=== PATIENT | male | born 1955 | race Caucasian/White ===

== ENCOUNTER 2018-08-07 10:52 | Outpatient (CLI) | payer OTHER | END 2018-08-07 10:53 | disposition home or self-care (01) | LOC: LAB.F 10:52 | PROVIDERS: ATTEND Internal Medicine | DX: E78.5 Hyperlipidemia, unspecified (principal); Z12.5 Encounter for screening for malignant neoplasm of prostate ==

== ENCOUNTER 2018-08-08 07:15 | Outpatient (CLI) | payer OTHER ==
[2018-08-08 11:51] LABS: ALBUMIN 4.2 g/dL (3.2-5.5); ALBUMIN/GLOBULIN RATIO 1.6 (1.0-2.2); ALKALINE PHOSPHATASE 53 IU/L (42-121); ALT ALANINE AMINOTRANSFERASE 33 IU/L (10-60); AST ASPARTATE AMINOTRANSFERASE 26 IU/L (10-42); BILIRUBIN,TOTAL 0.7 mg/dL (0.2-1.0); BUN - BLOOD UREA NITROGEN 20 mg/dL (6-20); CALCIUM 9.2 mg/dL (8.5-10.3); CARBON DIOXIDE - CO2 27 mmol/L (21-32); CHLORIDE 105 mmol/L (101-111); CHOLESTEROL 191 mg/dL; GFR - MDRD 75 (>89); GLUCOSE 106 mg/dL (70-100); HDL CHOLESTEROL 48 mg/dL; LDL CHOLESTEROL,CALCULATED 122 mg/dL; LDL/HDL RATIO 2.5 (<3.6); SODIUM 139 mmol/L (135-145); TOTAL PROTEIN 6.9 g/dL (6.7-8.2); VLDL CHOLESTEROL 21 mg/dL
== END 2018-08-08 07:16 | disposition home or self-care (01) ==
LOC: LAB.F 07:15
PROVIDERS: ATTEND Internal Medicine
DX: E78.5 Hyperlipidemia, unspecified (principal); Z12.5 Encounter for screening for malignant neoplasm of prostate
CPT/HCPCS: 36415; 80053; 80061; 83721; 84153

== ENCOUNTER 2019-09-21 09:34 | Outpatient (CLI) | payer OTHER ==
[2019-09-21 17:49] LABS: ALBUMIN 4.4 g/dL (3.2-5.5); ALBUMIN/GLOBULIN RATIO 1.8 (1.0-2.2); ALKALINE PHOSPHATASE 54 IU/L (42-121); ALT ALANINE AMINOTRANSFERASE 34 IU/L (10-60); AST ASPARTATE AMINOTRANSFERASE 23 IU/L (10-42); BILIRUBIN,TOTAL 1.1 mg/dL (0.2-1.0); BUN - BLOOD UREA NITROGEN 21 mg/dL (6-20); CALCIUM 9.4 mg/dL (8.5-10.3); CARBON DIOXIDE - CO2 30 mmol/L (21-32); CHLORIDE 103 mmol/L (101-111); CHOL/HDL RATIO 4.2 (<5.0); CHOLESTEROL 184 mg/dL; CREATININE 1.2 mg/dL (0.6-1.2); GFR - MDRD 61 (>89); GLUCOSE 101 mg/dL (70-100); HDL CHOLESTEROL 44 mg/dL; LDL CHOLESTEROL,CALCULATED 102 mg/dL; LDL/HDL RATIO 2.3 (<3.6); SODIUM 140 mmol/L (135-145); TOTAL PROTEIN 6.9 g/dL (6.7-8.2); VLDL CHOLESTEROL 38 mg/dL
== END 2019-09-21 09:35 | disposition home or self-care (01) ==
LOC: LAB.S 09:34
PROVIDERS: ATTEND Internal Medicine
DX: E78.5 Hyperlipidemia, unspecified (principal); Z12.5 Encounter for screening for malignant neoplasm of prostate
CPT/HCPCS: 36415; 80053; 80061; 83721; 84153

== ENCOUNTER 2021-03-30 00:29 | Outpatient (CLI) | payer MEDICARE | END 2021-03-30 23:59 | disposition critical access hospital (66) | LOC: EMS 00:29 | DX: R07.89 Other chest pain (principal) | CPT/HCPCS: A0425; A0429 ==

== ENCOUNTER 2021-03-30 01:03 | Emergency (ER) | payer MEDICARE, OTHER ==
--- NOTE | 2021-03-30 01:15 | ED Physician Documentation ---
History of Present Illness - Stated complaint Stated Complaint: CHEST TIGHTNESS - History obtained from History obtained from: Patient - Additonal information Additional information: 66-year-old man with past medical history of high blood pressure, gerd, and high cholesterol , Non-smoker, no family history of cardiac disease, presents with chest pain sudden onset midsternal nonradiating 3 out of 10 about an hour prior to arrival while preparing for bed, quickly resolving to 1 out of 10. Patient states that he took 325 of aspirin as recommended by stunner over the phone. Of note, he did take Viagra this evening. Denies nausea, diaphoresis, dizziness, shortness of breath. Review of Systems Ten Systems: 10 systems reviewed and negative Constitutional: denies: Fever, Chills Cardiac: reports: Chest pain / pressure Respiratory: denies: Dyspnea PD PAST MEDICAL HISTORY - Present Medications Home Medications: Ambulatory Orders Medication Instructions Recorded Confirmed Fexofenadine/Pseudoephedrine 1 tab PO DAILY PRN 03/30/21 03/30/21 [Xiao-D 24 Hour Tablet] Losartan Potassium [Cozaar] 100 mg PO DAILY 03/30/21 03/30/21 Pantoprazole Sodium 40 mg PO DAILY 03/30/21 03/30/21 Pravastatin [Pravachol] 20 mg PO DAILY 03/30/21 03/30/21 - Allergies Allergies/Adverse Reactions: Allergies Allergy/AdvReac Type Severity Reaction Status Date / Time benzoin Allergy Rash Verified 03/30/21 01:44 cephalexin [From Keflex] Allergy Unknown Verified 03/30/21 01:44 PD ED PE NORMAL - Vitals Vital signs reviewed: Yes - General General: Alert and oriented X 3, No acute distress, Well developed/nourished - HEENT HEENT: Atraumatic, PERRL, EOMI - Neck Neck: Supple, no meningeal sign - Cardiac Cardiac: RRR - Respiratory Respiratory: No respiratory distress, Clear bilaterally - Abdomen Abdomen: Non tender, Non distended - Derm Derm: Normal color - Extremities Extremities: No deformity - Neuro Neuro: Alert and oriented X 3 - Psych Psych: Normal mood, Normal affect Results - Vitals Vitals: Vital Signs - 24 hr 03/30/21 03/30/21 03/30/21 01:15 01:40 02:21 Temperature 36.2 C L Heart Rate 59 L 62 55 L Respiratory 18 12 12 Rate Blood Pressure 134/79 H 134/79 H 135/85 H O2 Saturation 100 98 98 03/30/21 03/30/21 03:15 04:46 Temperature Heart Rate 62 56 L Respiratory 24 18 Rate Blood Pressure 130/81 H 124/78 O2 Saturation 96 97 Oxygen O2 Source Room air - EKG (time done) 0110 Rate: Rate (enter#) (61) Rhythm: NSR [place]: Normal Ischemia: ST elevation c/w repol (anterior minimal KISHOR. no STEMI) 0439 Rate: Rate (enter#) (56) Rhythm: NSR [place]: Normal Intervals: Normal MT QRS: Normal Ischemia: Normal ST segments - Labs Labs: Laboratory Tests 03/30/21 03/30/21 03/30/21 01:20 01:20 01:20 WBC 4.7 L RBC 4.79 Hgb 15.0 Hct 45.0 MCV 93.9 MCH 31.3 H MCHC 33.3 RDW 12.2 Plt Count 185 MPV 11.2 Neut # (Auto) 2.8 Lymph # (Auto) 1.1 L Hughes # (Auto) 0.6 Eos # (Auto) 0.2 Baso # (Auto) 0.0 Absolute Nucleated RBC 0.00 Nucleated RBC % 0.0 Sodium 137 Potassium 3.8 Chloride 102 Carbon Dioxide 26 Anion Gap 9.0 BUN 26 H Creatinine 1.2 Estimated GFR (MDRD) 61 L Glucose 108 H Calcium 8.9 Total Bilirubin 0.9 AST 22 ALT 37 Alkaline Phosphatase 55 Troponin I High Sens 4.1 Total Protein 6.8 Albumin 4.3 Globulin 2.5 Albumin/Globulin Ratio 1.7 Lipase 44 03/30/21 03:30 WBC RBC Hgb Hct MCV MCH MCHC RDW Plt Count MPV Neut # (Auto) Lymph # (Auto) Hughes # (Auto) Eos # (Auto) Baso # (Auto) Absolute Nucleated RBC Nucleated RBC % Sodium Potassium Chloride Carbon Dioxide Anion Gap BUN Creatinine Estimated GFR (MDRD) Glucose Calcium Total Bilirubin AST ALT Alkaline Phosphatase Troponin I High Sens 3.8 Total Protein Albumin Globulin Albumin/Globulin Ratio Lipase PD MEDICAL DECISION MAKING - ED course ED course: 66-year-old man presents with atypical chest pain. 2 sets of troponins negative. EKGs unchanged. HEART score 3 (age, risk factors). Will dc home to f/u with his pmd. strict return precautions given. Departure - Departure Disposition: 01 Home, Self Care Clinical Impression: Chest pain Condition: Good Instructions: ED Chest Pain Atypical Unkn Cause Comments: You were seen in the emergency department for chest pain and did not have any acute findings on your work-up. You should follow-up with your primary doctor for possible referral to cardiology and stress testing. Return to the emergency department if you have any new or worsening symptoms or other concerns.
[2021-03-30 01:27] LABS: BASOPHILS % (AUTO) 0.8 %; EOSINOPHILS # (AUTO) 0.2 10^3/uL (0.0-0.7); EOSINOPHILS % (AUTO) 4.2 %; LYMPHOCYTES # (AUTO) 1.1 10^3/uL (1.5-3.5); LYMPHOCYTES % (AUTO) 22.8 %; MEAN CORPUSCULAR HEMOGLOBIN 31.3 pg (27.0-31.0); MEAN CORPUSCULAR HGB CONC 33.3 g/dL (32.0-36.0); MEAN CORPUSCULAR VOLUME 93.9 fL (80.0-94.0); MEAN PLATELET VOLUME 11.2 fL (7.4-11.4); MONOCYTES # (AUTO) 0.6 10^3/uL (0.0-1.0); NEUTROPHILS # (AUTO) 2.8 10^3/uL (1.5-6.6); PLT - PLATELET COUNT 185 10^3/uL (130-450); RED BLOOD COUNT 4.79 10^6/uL (4.70-6.10); RED CELL DISTRIBUTION WIDTH 12.2 % (12.0-15.0); WHITE BLOOD COUNT 4.7 x10^3/uL (4.8-10.8)
--- NOTE | 2021-03-30 01:29 | XRAY Report ---
PROCEDURE: Chest 1 View X-Ray INDICATIONS: Chest Pain TECHNIQUE: One view of the chest was acquired. COMPARISON: None. FINDINGS: Surgical changes and devices: None. Lungs and pleura: No pleural effusions or pneumothorax. Mild pulmonary vascular congestion is seen. No definite focal infiltrate. Mediastinum: Mediastinal contours appear normal. Heart size is normal. Bones and chest wall: No suspicious bony lesions. Overlying soft tissues appear unremarkable. IMPRESSION: Mild pulmonary vascular congestion. No definite focal infiltrate. No pleural effusion or pneumothorax . Reviewed by: Andrew Dominguez MD on 03/30/2021 1:27 AM PDT Approved by: Andrew Dominguez MD on 03/30/2021 1:27 AM PDT Station ID: [id number]
[2021-03-30 01:39] LABS: ALBUMIN 4.3 g/dL (3.2-5.5); ALBUMIN/GLOBULIN RATIO 1.7 (1.0-2.2); BILIRUBIN,TOTAL 0.9 mg/dL (0.2-1.0); CALCIUM 8.9 mg/dL (8.5-10.3); CREATININE 1.2 mg/dL (0.6-1.2); POTASSIUM 3.8 mmol/L (3.5-5.0); TOTAL PROTEIN 6.8 g/dL (6.7-8.2)
[2021-03-30 05:07] VITALS: BP 117/74
== END 2021-03-30 05:07 | disposition home or self-care (01) ==
LOC: EDUNIT# → ED 01:03 → SUPCPDRO 01:03 → ED 05:07
DX: R07.89 Other chest pain (principal); I10 Essential (primary) hypertension; K21.9 Gastro-esophageal reflux disease without esophagitis; E78.00 Pure hypercholesterolemia, unspecified
CPT/HCPCS: 36415; 80053; 83690; 84484; 85025; 93005; 99284

== ENCOUNTER 2021-04-07 10:55 | Outpatient (CLI) | payer MEDICARE ==
[2021-04-07 14:39] LABS: BASOPHILS % (AUTO) 0.6 %; EOSINOPHILS # (AUTO) 0.2 10^3/uL (0.0-0.7); EOSINOPHILS % (AUTO) 3.3 %; HCT - HEMATOCRIT 47.5 % (42.0-52.0); HGB - HEMOGLOBIN 15.8 g/dL (14.0-18.0); LYMPHOCYTES # (AUTO) 1.1 10^3/uL (1.5-3.5); LYMPHOCYTES % (AUTO) 22.1 %; MEAN CORPUSCULAR HGB CONC 33.3 g/dL (32.0-36.0); MEAN CORPUSCULAR VOLUME 93.3 fL (80.0-94.0); MEAN PLATELET VOLUME 12.6 fL (7.4-11.4); MONOCYTES # (AUTO) 0.5 10^3/uL (0.0-1.0); MONOCYTES % (AUTO) 11.3 %; NEUTROPHILS % (AUTO) 62.5 %; PLT - PLATELET COUNT 206 10^3/uL (130-450); RED BLOOD COUNT 5.09 10^6/uL (4.70-6.10); RED CELL DISTRIBUTION WIDTH 12.3 % (12.0-15.0); WHITE BLOOD COUNT 4.8 x10^3/uL (4.8-10.8)
[2021-04-07 14:48] LABS: ALBUMIN 4.6 g/dL (3.2-5.5); ALBUMIN/GLOBULIN RATIO 1.8 (1.0-2.2); ALKALINE PHOSPHATASE 56 IU/L (42-121); ALT ALANINE AMINOTRANSFERASE 35 IU/L (10-60); AST ASPARTATE AMINOTRANSFERASE 23 IU/L (10-42); BUN - BLOOD UREA NITROGEN 23 mg/dL (6-20); CALCIUM 9.4 mg/dL (8.5-10.3); CARBON DIOXIDE - CO2 28 mmol/L (21-32); CHLORIDE 104 mmol/L (101-111); CHOL/HDL RATIO 4.9 (<5.0); CHOLESTEROL 212 mg/dL; CREATININE 1.3 mg/dL (0.6-1.2); GFR - MDRD 55 (>89); GLUCOSE 99 mg/dL (70-100); HDL CHOLESTEROL 43 mg/dL; LDL CHOLESTEROL,CALCULATED 132 mg/dL; LDL/HDL RATIO 3.1 (<3.6); POTASSIUM 4.1 mmol/L (3.5-5.0); SODIUM 141 mmol/L (135-145); TOTAL PROTEIN 7.1 g/dL (6.7-8.2); TRIGLYCERIDES 187 mg/dL; VLDL CHOLESTEROL 37 mg/dL
[2021-04-07 14:50] LABS: BILIRUBIN,URINE NEGATIVE (NEGATIVE); GLUCOSE, URINE (UA) NEGATIVE (NEGATIVE); KETONES,URINE (UA) NEGATIVE (NEGATIVE); LEUKOCYTE ESTERASE, URINE NEGATIVE (NEGATIVE); NITRITE,URINE NEGATIVE (NEGATIVE); OCCULT BLOOD,URINE NEGATIVE (NEGATIVE); PROTEIN,URINE NEGATIVE (NEGATIVE); UROBILINOGEN,URINE 0.2 (NORMAL) E.U./dL (NORMAL)
[2021-04-07 15:00] LABS: BACTERIA,URINE None Seen /HPF (None Seen); CLARITY,URINE CLEAR (CLEAR); RBC,URINE None Seen /HPF (0-5); SQUAMOUS EPITHELIAL CELL,UR RARE Squamous (<= Few); WBC,URINE 0-3 /HPF (0-3)
== END 2021-04-07 10:56 | disposition home or self-care (01) ==
LOC: LAB.S 10:55
PROVIDERS: ATTEND Internal Medicine
DX: I10 Essential (primary) hypertension (principal); E78.5 Hyperlipidemia, unspecified; R39.11 Hesitancy of micturition; Z12.5 Encounter for screening for malignant neoplasm of prostate
CPT/HCPCS: 36415; 80053; 80061; 81001; 85025; G0103; 83721; 84153

== ENCOUNTER 2021-04-30 10:57 | Outpatient (CLI) | payer MEDICARE ==
--- NOTE | 2021-04-30 11:07 | CARDIAC PROCEDURE NOTE ---
Stress Test Report Service Date: 04/30/21 Service Time: 11:00 Ordering Provider: Jae De La O MD Indication for Test: Assess chest discomfort. Significant Medical History: -Cornell reports a history of hypertension treated for the past ~15 years as well as erectile dysfunction, hyperlipidemia and GERD. He presents today for stress evaluation emanating from an Emergency Department visit approximately 3 weeks ago. That evening he had ingested sildenafil and about an hour later began to experience lower chest pressure and retrosternal pain, for which he sought evaluation. Denies concomitants such as increased work of breathing, profuse diaphoresis or nausea and reports that this discomfort was clearly different than his typical GERD pain. EKGs did not suggest ischemia and serial troponins were normal. The discomfort gradually resolved after approximately 12 hours and he reports no recurrence of this type of chest discomfort since. 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 Cardiac Risk Factors: History of hypertension treated for ~15 years, treated dyslipidemia and his mother with fatal stroke at age 90; he has no history of diabetes or ever cigarette smoking. Type of Stress Test: ETT with Echocardiography Procedure: -Exercise Treadmill Test- After signing informed consent, the patient underwent resting echo imaging and then performed treadmill exercise using a Rodney protocol. The patient exercised for 10 minutes 40 seconds and achieved a peak heart rate of 158 (102 percent predicted maximum heart rate for age), and an estimated workload of 12.7 METS. The test was terminated due to fatigue/shortness of breath after patient achieved his target heart rate. Resting heart rate: 67 Peak heart rate: 158 Normal response to exercise. Resting BP: 135/90 Peak BP: 224/70 Borderline hypertensive BP at rest with robust increase in SBP and normal decline of DBP, findings likely due to patient withholding his HCTZ and losartan this morning. Rhythm during exercise: Sinus rhythm throughout, with rare isolated PACs and PVCs, with a single ventricular couplet at peak exercise. Symptoms: No chest discomfort reported. EKG at rest showed normal sinus rhythm and normal in all aspects except for borderline QTc of 457 msec. EKG at peak stress showed J-point depression with upsloping ST segments NOT meeting diagnostic criteria for ischemia. In Recovery there was normal recovery of HR and BP to near baseline levels. Echo imaging performed at rest and with stress will be reported separately. IPop MD, was present throughout this treadmill stress test and supervised it in its entirety. Summary: 1) Exercise tolerance well above average for age and gender as evidenced by LACEY of -35.5%. 2) Normal resting EKG. 3) Adequate level of exercise was achieved on this treadmill stress test. 4) Borderline elevated BP at rest with normal response to exercise. 5) No ischemic changes by EKG criteria were seen at peak stress. 6) Echo image interpretation reveals normal resting left ventricular size and systolic function, with normal hyperdynamic augmentation of all segments with stress, thus no echo evidence of inducible ischemia. See separate echo report for more details. CONCLUSION: Low risk exercise treadmill findings with excellent exertional tolerance and no inducible chest discomfort and no EKG or echo evidence of inducible ischemia.
== END 2021-04-30 10:58 | disposition home or self-care (01) ==
LOC: DI 10:57
PROVIDERS: ATTEND Internal Medicine
DX: R07.9 Chest pain, unspecified (principal); I10 Essential (primary) hypertension; E78.5 Hyperlipidemia, unspecified; Z82.3 Family history of stroke
CPT/HCPCS: 93350

== ENCOUNTER 2022-06-29 07:05 | Outpatient (CLI) | payer MEDICARE ==
[2022-06-29 14:40] LABS: BASOPHILS % (AUTO) 0.8 %; EOSINOPHILS # (AUTO) 0.2 10^3/uL (0.0-0.7); EOSINOPHILS % (AUTO) 3.8 %; HCT - HEMATOCRIT 46.9 % (42.0-52.0); HGB - HEMOGLOBIN 15.1 g/dL (14.0-18.0); LYMPHOCYTES # (AUTO) 1.3 10^3/uL (1.5-3.5); LYMPHOCYTES % (AUTO) 24.9 %; MEAN CORPUSCULAR HEMOGLOBIN 30.6 pg (27.0-31.0); MEAN CORPUSCULAR HGB CONC 32.2 g/dL (32.0-36.0); MEAN CORPUSCULAR VOLUME 94.9 fL (80.0-94.0); MEAN PLATELET VOLUME 12.2 fL (7.4-11.4); MONOCYTES # (AUTO) 0.5 10^3/uL (0.0-1.0); MONOCYTES % (AUTO) 9.9 %; NEUTROPHILS % (AUTO) 60.2 %; PLT - PLATELET COUNT 216 10^3/uL (130-450); RED BLOOD COUNT 4.94 10^6/uL (4.70-6.10); RED CELL DISTRIBUTION WIDTH 13.3 % (12.0-15.0)
[2022-06-29 15:37] LABS: ALBUMIN/GLOBULIN RATIO 1.4 (1.0-2.2); ALKALINE PHOSPHATASE 54 IU/L (42-121); ALT ALANINE AMINOTRANSFERASE 38 IU/L (10-60); AST ASPARTATE AMINOTRANSFERASE 26 IU/L (10-42); BILIRUBIN,TOTAL 0.9 mg/dL (0.2-1.0); BUN - BLOOD UREA NITROGEN 26 mg/dL (6-20); CALCIUM 9.4 mg/dL (8.5-10.3); CARBON DIOXIDE - CO2 29 mmol/L (21-32); CHLORIDE 103 mmol/L (101-111); CHOLESTEROL 215 mg/dL; CREATININE 1.2 mg/dL (0.6-1.2); GFR - MDRD 60 (>89); GLUCOSE 103 mg/dL (70-100); HDL CHOLESTEROL 43 mg/dL; LDL CHOLESTEROL,CALCULATED 139 mg/dL; LDL/HDL RATIO 3.2 (<3.6); POTASSIUM 4.1 mmol/L (3.5-5.0); SODIUM 141 mmol/L (135-145); TOTAL PROTEIN 6.8 g/dL (6.7-8.2); TRIGLYCERIDES 166 mg/dL; VLDL CHOLESTEROL 33 mg/dL
[2022-06-29 15:42] LABS: THYROID STIMULATING HORMONE 2.04 uIU/mL (0.34-5.60)
== END 2022-06-29 07:06 | disposition home or self-care (01) ==
LOC: LAB.S 07:05
PROVIDERS: ATTEND Registered Nurse
DX: Z00.00 Encounter for general adult medical examination without abnormal findings (principal); I10 Essential (primary) hypertension; E78.5 Hyperlipidemia, unspecified; Z12.5 Encounter for screening for malignant neoplasm of prostate
CPT/HCPCS: 36415; 80053; 80061; 84443; 85025; G0103; 83721; 84153

== ENCOUNTER 2023-01-05 08:00 | Outpatient (CLI) | payer MEDICARE ==
--- NOTE | 2023-01-06 07:58 | XRAY Report ---
PROCEDURE: Chest 2 View X-Ray INDICATIONS: CHRONIC COUGH TECHNIQUE: 2 views of the chest were acquired. COMPARISON: Chest x-ray one view, 03/30/2021. FINDINGS: Surgical changes and devices: None. Lungs and pleura: Left basilar opacity may be infiltrate, scar or atelectasis. No pleural effusions or pneumothorax. Mediastinum: Mediastinal contours appear normal. Heart size is normal. Bones and chest wall: No suspicious bony lesions. Overlying soft tissues appear unremarkable. IMPRESSION: Left basilar infiltrate, scar or atelectasis. Reviewed by: Lance New MD on 01/06/2023 7:56 AM PDT Approved by: Lance New MD on 01/06/2023 7:56 AM PDT Station ID: [id number]
== END 2023-01-05 08:01 | disposition home or self-care (01) ==
LOC: DI.S 08:00
PROVIDERS: ATTEND Internal Medicine
DX: R05.3 Chronic cough (principal); R91.8 Other nonspecific abnormal finding of lung field

== ENCOUNTER 2023-01-13 07:40 | Outpatient (CLI) | payer MEDICARE ==
--- NOTE | 2023-01-13 09:01 | Ultrasound Report ---
PROCEDURE: Duplex Ext Veins Left INDICATIONS: LEFT LEG SWELLING TECHNIQUE: Real-time imaging, as well as color and pulse Doppler interrogation, were performed of the lower extr emity deep veins from the inguinal ligament to the popliteal fossa. COMPARISON: None. FINDINGS: The deep veins are normally compressible, and free of intraluminal thrombus. Color and pu lse Doppler demonstrate normal phasic intraluminal flow. There is normal augmentation response to di stal compression maneuver. An area of concern there is a focus of superficial vein calcification of t hrombus. IMPRESSION: No deep venous thrombosis. Focal area of superficial thrombophlebitis. Reviewed by: Kiana Sullivan MD on 01/13/2023 9:00 AM PDT Approved by: Kiana Sullivan MD on 01/13/2023 9:00 AM PDT Station ID: [id number]
== END 2023-01-13 07:41 | disposition home or self-care (01) ==
LOC: DI 07:40
PROVIDERS: ATTEND Internal Medicine
DX: I80.02 Phlebitis and thrombophlebitis of superficial vessels of left lower extremity (principal)

== ENCOUNTER 2023-01-30 08:43 | Outpatient (CLI) | payer MEDICARE ==
[2023-01-30 09:02] LABS: CREATININE 1.3 mg/dL (0.6-1.2)
[2023-01-30] MEDS ORDERED: iohexoL-300 100 ML VIAL ONE (09:13)
[2023-01-30] MEDS ORDERED: iohexoL-300 100 ML VIAL IVP ONE (09:29)
--- NOTE | 2023-01-31 10:17 | CT Report ---
PROCEDURE: CHEST W INDICATIONS: CHRONIC COUGH CONTRAST: 100ml omni 300 TECHNIQUE: After the administration of intravenous contrast, 1 mm axial images were acquired from the pulmonary apices through the posterior costophrenic angles. Axial 5 mm soft tissue kernel reconstructions were performed as well as 8 mm axial MIP and coronal and sagittal 5 mm reformations. For radiation dose reduction, the following was used: automated exposure control, adjustment of mA and/or kV according to patient size. COMPARISON: None. FINDINGS: Image quality: Excellent. Lungs and pleura: No consolidation. No pleural effusions. No pneumothorax. No suspicious pulmonary n odules which require follow up. Mediastinum: Heart size is normal. No pericardial effusion. No large vessel abnormality. No mediastin al adenopathy by size criteria. Chest wall and lower neck: Thyroid is unremarkable. No axillary or supraclavicular adenopathy by size . Bones: No aggressive osseous abnormality. Upper Abdomen: Unremarkable. IMPRESSION: No abnormal findings to explain the patient's chronic cough. No evidence of airways disease. Reviewed by: Tanner Solis on 01/31/2023 10:16 AM PDT Approved by: Tanner Solis on 01/31/2023 10:16 AM PDT Station ID: [id number]
== END 2023-01-30 08:44 | disposition home or self-care (01) ==
LOC: LAB 08:43
PROVIDERS: ATTEND Internal Medicine
DX: R05.3 Chronic cough (principal)
CPT/HCPCS: 36415; 71260; 82565; Q9967

== ENCOUNTER 2023-08-31 07:46 | Outpatient (CLI) | payer MEDICARE ==
[2023-08-31 14:33] LABS: BASOPHILS % (AUTO) 0.7 %; EOSINOPHILS # (AUTO) 0.2 10^3/uL (0.0-0.7); EOSINOPHILS % (AUTO) 3.8 %; HCT - HEMATOCRIT 49.5 % (42.0-52.0); HGB - HEMOGLOBIN 15.8 g/dL (14.0-18.0); LYMPHOCYTES % (AUTO) 22.9 %; MEAN CORPUSCULAR HEMOGLOBIN 30.6 pg (27.0-31.0); MEAN CORPUSCULAR HGB CONC 31.9 g/dL (32.0-36.0); MEAN CORPUSCULAR VOLUME 95.7 fL (80.0-94.0); MEAN PLATELET VOLUME 12.7 fL (7.4-11.4); MONOCYTES # (AUTO) 0.6 10^3/uL (0.0-1.0); MONOCYTES % (AUTO) 13.8 %; NEUTROPHILS # (AUTO) 2.5 10^3/uL (1.5-6.6); NEUTROPHILS % (AUTO) 58.6 %; PLT - PLATELET COUNT 209 10^3/uL (130-450); RED BLOOD COUNT 5.17 10^6/uL (4.70-6.10); RED CELL DISTRIBUTION WIDTH 13.3 % (12.0-15.0); WHITE BLOOD COUNT 4.2 x10^3/uL (4.8-10.8)
[2023-08-31 15:54] LABS: ALBUMIN 4.2 g/dL (3.2-5.5); ALBUMIN/GLOBULIN RATIO 1.8 (1.0-2.2); ALKALINE PHOSPHATASE 51 IU/L (42-121); ALT ALANINE AMINOTRANSFERASE 26 IU/L (10-60); AST ASPARTATE AMINOTRANSFERASE 23 IU/L (10-42); BILIRUBIN,TOTAL 0.7 mg/dL (0.2-1.0); BUN - BLOOD UREA NITROGEN 23 mg/dL (6-20); CALCIUM 9.6 mg/dL (8.5-10.3); CARBON DIOXIDE - CO2 29 mmol/L (21-32); CHLORIDE 105 mmol/L (101-111); CHOL/HDL RATIO 5.5 (<5.0); CHOLESTEROL 253 mg/dL; CREATININE 1.4 mg/dL (0.6-1.3); GFR - MDRD 50 (>89); GLUCOSE 85 mg/dL (74-104); HDL CHOLESTEROL 46 mg/dL; LDL CHOLESTEROL,CALCULATED 177 mg/dL; LDL/HDL RATIO 3.8 (<3.6); POTASSIUM 3.9 mmol/L (3.5-4.5); SODIUM 140 mmol/L (135-145); TOTAL PROTEIN 6.5 g/dL (6.4-8.9); TRIGLYCERIDES 149 mg/dL (48-352); VLDL CHOLESTEROL 30 mg/dL
== END 2023-08-31 07:47 | disposition home or self-care (01) ==
LOC: LAB.S 07:46
PROVIDERS: ATTEND Registered Nurse
DX: E78.5 Hyperlipidemia, unspecified (principal); Z79.899 Other long term (current) drug therapy; Z12.5 Encounter for screening for malignant neoplasm of prostate
CPT/HCPCS: 36415; 80053; 80061; 85025; G0103; 83721; 84153

== ENCOUNTER 2023-12-05 06:53 | Day surgery (SDC) | payer MEDICARE ==
[2023-12-05] MEDS: LACTATED RINGERS 1,000 ML IV ONE ×2 (07:03→08:45)
--- NOTE | 2023-12-05 07:35 | ANESTHESIA ---
Pre-Anesthesia VS, & Labs - Diagnosis screening - Procedure colonoscopy Vital Signs: Temp Pulse Resp BP Pulse Ox O2 Flow Rate 36.0 C L 77 14 163/95 H 100 12/05/23 07:14 12/05/23 07:14 12/05/23 07:14 12/05/23 07:14 12/05/23 07:14 Height: 6 ft 1 in Weight (kg): 95.7 kg Body Mass Index: 27.8 BMI Classification: Overweight - NPO Other (water last at 5am) Home Medications and Allergies Fexofenadine/Pseudoephedrine [Xiao-D 24 Hour Tablet] 1 tab PO DAILY PRN 03/30/21 Losartan Potassium [Cozaar] 100 mg PO DAILY 03/30/21 Pantoprazole Sodium 40 mg PO DAILY 03/30/21 Allergies/Adverse Reactions: Allergies Allergy/AdvReac Type Severity Reaction Status Date / Time benzoin Allergy Rash Verified 03/30/21 01:44 cephalexin [From Keflex] Allergy Unknown Verified 03/30/21 01:44 Anes History & Medical History - Anesthetic History Anesthesia Complications: reports: No previous complications - Medical History Cardiovascular: reports: Hypertension, High cholesterol Pulmonary: reports: None Gastrointestinal: reports: GERD Urinary: reports: Benign prostate hypertrophy Musculoskeletal: reports: None Endocrine/Autoimmune: reports: None Skin: reports: None Smoking Status: Never smoker - Surgical History Eyes Ears Nose Throat (EENT): reports: Tonsil/Adenoidectomy Exam General: Alert, Oriented x3 Dental: WNL Mouth Opening: Greater than 4 Fingerbreadths Neck Mobility: Normal Mallampati classification: II Thyromental Distance: greater than 6 cm Respiratory: Lungs clear Cardiovascular: Regular rate Plan Anesthesia Type: Total IV Consent for Procedure(s) Verified and Reviewed: Yes Code Status: Attempt Resuscitation ASA classification: 2-Mild systemic disease Is this case an emergency?: No
[2023-12-05] MEDS ORDERED: PROPOFOL 500 MG/50 ML 500 MG/50 ML VIAL ONE (08:12)
[2023-12-05 09:22] VITALS: BP 125/98; O2SAT 99
--- NOTE | 2023-12-05 10:09 | ANESTHESIA POST OP EVALUATION ---
Anesthesia Post Eval - Post Anesthesia Eval Vitals: Last Vital Signs Temp 36.3 C L 12/05/23 08:42 Pulse 66 12/05/23 09:00 Resp 16 12/05/23 09:00 BP 125/98 H 12/05/23 09:00 Pulse Ox 99 12/05/23 09:00 O2 Flow Rate CV Function Including HR & BP: Stable Pain Control: Satisfactory Nausea & Vomiting: Negative Mental Status: Baseline Respiratory Status: Airway Patent Hydration Status: Satisfactory Anesthesia Complications: None
== END 2023-12-05 06:54 | disposition home or self-care (01) ==
LOC: SDS 06:53
PROVIDERS: ATTEND Surgery
DX: Z12.11 Encounter for screening for malignant neoplasm of colon (principal); K64.1 Second degree hemorrhoids; I10 Essential (primary) hypertension
CPT/HCPCS: G0121; J7120